=== PATIENT | male | born 1965 | race Two or more races ===

== ENCOUNTER 2022-03-27 07:14 | Day surgery (SDC) | payer MEDICAID ==
[2022-03-27] VITALS (7 sets, daily range): BP systolic 100–107; BP diastolic 67–77
[~2022-03-27] VITALS: Ht 172.7 cm; Wt 77.1 kg
[~2022-03-27 07:14] MED LIST: ASPI1TAB19 PO; ATOR20TA50 PO; CHOL50007 PO; METO25TA93 PO
[2022-03-27] MEDS ORDERED: ANGIOMAX 250 MG VIAL IV ONE (08:41)
[2022-03-27] MEDS ORDERED: SODIUM CHL 0.9% 0 ML ONE (08:42)
[2022-03-27] MEDS ORDERED: MIDAZOLAM HCL 2MG/2ML 2ml VIAL (1mg/ml) ONE (08:42)
[2022-03-27] MEDS ORDERED: HEPARIN SODIUM (PORCINE) 5000 UNITS/ML 1ML VIAL ONE (08:42)
[2022-03-27] MEDS ORDERED: fentaNYL CITRATE 100 MCG/2 ML VL ONE (08:42)
[2022-03-27] MEDS ORDERED: LIDOCAINE 2%HCL (LOCAL ANESTH.) INJ 10ml MDV ONE ×2 (08:42→09:07)
[2022-03-27] MEDS ORDERED: IODIXANOL 320MG/ML 100ML BTL IV ONE (08:42)
[2022-03-27] MEDS ORDERED: VERAPAMIL 2.5MG/ML INJ 2ML VIAL IV ONE (08:43)
== END 2022-03-27 11:50 | disposition home or self-care (01) ==
LOC: CATH 07:14
PROVIDERS: ATTEND Internal Medicine Cardiovascular Disease
DX: R94.39 Abnormal result of other cardiovascular function study (principal); I25.10 Atherosclerotic heart disease of native coronary artery without angina pectoris; Z20.822 Contact with and (suspected) exposure to COVID-19
CPT/HCPCS: 93458; C1887; C1894; J1644; J2001; J2250; J3010; Q9967; U0003; 99152